=== PATIENT | male | born 1950 | race Caucasian/White ===

== ENCOUNTER 2016-10-10 11:12 | Inpatient (IN) | payer MEDICARE ==
[~2016-10-10] VITALS: Ht 182.9 cm; Wt 105.2 kg
[~2016-10-10 11:12] MED LIST: CYAN500 PO; DOCU250C2 PO; FERR-83 PO; FURO40TA4 PO; METO50TA3 PO; OXYC5TAB72 PO; SENN-133 PO; TAMS0.4C98 PO
--- NOTE | 2016-10-10 11:15 | ED.REPORT ---
HPI-General Illness Date of Service Oct 10, 2016 ED Provider: Dr. Dyer Pt is a 66 y/o male w/ a hx of primary colon cancer with mets to the liver, dilated cardiomyopathy, a-fib on Coumadin, CVA, HTN, presenting to the ED via EMS with his c/o generalized weakness onset yesterday night. His noticed yellow discharge from his chronic LLE wound last night. He did not go to his wound care appointment yesterday because he was feeling unwell. He c/o associated RUQ abdominal pain, mild nausea, decreased appetite. Pt denies fever , chills, vomiting, CP, SOB, decrease PO liquid intake. CODE STATUS: DNR and DNI, treat with antibiotics Oncologist: Dr. Saul Nursing Notes Stated Complaint: WEAKNESS Nursing Notes Reviewed: Yes Allergies: Coded Allergies: No Known Allergies (Verified Allergy, Unknown, 08/13/16) Scheduled Cyanocobalamin (Vitamin B12) 500 Mcg Tablet 1,000 MCG PO DAILY Ferrous Sulfate (Ferrous Sulfate) 325 Mg Tablet 325 MG PO DAILY Furosemide (Furosemide) 40 Mg Tablet 40 MG PO DAILY Metoprolol Tartrate (Metoprolol Tartrate) 50 Mg Tablet 50 MG PO BID Sennosides (Senna) 8.6 Mg Tablet 8.6 MG PO DAILY Tamsulosin (Flomax) 0.4 Mg Capsule 0.4 MG PO Evening Scheduled PRN Docusate Sodium (Docusate Sodium) 250 Mg Capsule 250 MG PO DAILY PRN PRN For Constipation oxyCODONE (oxyCODONE) 5 Mg Tablet 5-10 MG PO q6hrs PRN PRN For Pain General Time Seen by MD: 11:15 Chief Complaint Not feeling well Hx Obtained From: Patient, Spouse, EMS Arrived By: Ambulance Sudden in Onset?: No Onset Occurred: 9 - 12 hours ago Symptom Duration: Since onset Location: : Abdomen Quality: Cramping Severity: Current: Mild Severity: Maximum: Mild Recent Healthcare: Recent testing, Previous diagnosis, Prior workup Similar Sx Previous: Yes Past Medical History Past Medical History Notes: Patient Oncology note 01/16/15: HISTORY OF PRESENT ILLNESS: 1. Metastatic colon cancer with liver metastases, treated with FOLFOX December 21 through May 06, 2014, with a hiatus due to healing issues, and then again May 18 through June 07 due to wound breakdown. 2. Distal sigmoid adenocarcinoma with liver metastases, treated with FOLFOX on November 25, December 17, December 31, January 12, January 18, 2013, with partial response. Had to stop due to complications of surgery. 3. Complicated surgery with sigmoid colectomy, lysis of adhesions on February 24, 2013, with debridement of necrotic midline abdominal wall fascia. Left lower quadrant subcutaneous tissue wound VAC placement February and March 2013. 4. Surgical treatment of adhesions March 04, 2013, with necrosis of the descending colon and a large intra-abdominal abscess requiring laparotomy, partial colectomy, transverse colostomy and drainage of abscess, wound VAC placement, followed by prolonged retirement stay. 5. In terms of metastatic disease to the liver, this has been in the background to some extent due to his wound healing issues. MRI has been the best measurement and has shown a response to FOLFOX chemotherapy essentially every time he has received it. [facility] was consulted as to the best approach given his history of wound healing, and their recommendation was to continue treatment with FOLFOX and accept some slowing of wound healing. 6. The patient did not tolerate cetuximab. 7. He continues on FOLFOX chemotherapy. 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 Splenectomy Tonsillectomy Vasectomy Smoking History Former Smoker Social History Alcohol Use: Denies alcohol use Drug Use: Denies drug use Ambulatory Status Independent Review of Systems +decreased appetite Full Review of Systems Constitutional: Reports: Weakness - generalized, Denies: Chills, Fever Respiratory: Denies: Shortness of breath Cardiovascular: Denies: Chest pain GI: Reports: Abdominal pain, Nausea, Denies: Vomiting Complete sys rev & neg: except as marked. Physical Exam Vital Signs Vital Signs Date Time Temp Pulse Resp B/P Pulse Ox O2 Delivery O2 Flow Rate FiO2 10/10/16 11:22 35.6 74 16 86/24 96 Room Air Initial VS: Reviewed, Vital signs abnormal ENT: Mucous membranes moist, Conjunctiva normal, No scleral icterus Neck: Supple, Full range of motion Neurologic: Alert, Oriented, Nonfocal Psychiatric: Mood/affect normal, Behavior normal, Normal thought content General/Constitutional: Awake, Alert, No acute distress, Cooperative Appearance / Presentation: Positive: Icteric Head / Eyes: Atraumatic, Normocephalic, PERRL Conjunctiva / Sclera: Positive: Icteric Respiratory / Chest: Atraumatic, Breath sounds NL, Breath sounds = bilat, No respiratory distress, No rales, No rhonchi, No wheezing, No retractions, No stridor, No chest tenderness, No chest wall deformity, No crepitus Lungs clear anteriorly Cardiovascular: Heart rate NL, Cap refill not delayed Heart Rate / Rhythm: Positive: Irreg irregular rhythm Heart Sounds / Murmur: Positive: Systolic murmur present.. (II/, lower left sternal border) Abdomen: Atraumatic, Non-tender, BS normoactive Colostomy left abdomen Abdomen is firm Anasarca present Lower Extremity / Pelvis / MS: Atraumatic, Full range of motion, No compartment syndrome Massive bilateral lower extremity edema. Left leg has a compression dressing Dressing on LLE taken down. Chronic venous stasis changes. Lymphedema Erythema Lower extremity drainage is malodorous No warmth Mild erythema over sacrum per RN Interpretation & Diagnostics Lab Results Interpretation Result Diagram: 10/10/16 1140 10/10/16 1140 Test 10/10/16 11:40 10/10/16 13:18 White Blood Count 8.4th/mm3 (3.8-10.1) Red Blood Count 2.81mil/mm3 (4.40-5.80) Hemoglobin 9.4g/dL (13.8-17.2) Hematocrit 26.0% (41.0-50.0) Mean Corpuscular Volume 92.5fL (81-100) Mean Corpuscular Hemoglobin 33.5pg (27.0-35.0) Mean Corpuscular Hemoglobin Concent 36.2% (32.0-37.0) Red Cell Distribution Width 20.5% (12.3-15.4) Platelet Count 161bil/L (150-400) Neutrophils (%) (Auto) 86.1% (40-74) Lymphocytes (%) (Auto) 2.6% (14-46) Monocytes (%) (Auto) 10.3% (4-12) Eosinophils (%) (Auto) 0.4% (0-5) Basophils (%) (Auto) 0.2% (0-3) Prothrombin Time 13.9sec (8.1-12.5) Prothromb Time International Ratio 1.29ratio Sodium Level 135mEq/L (134-144) Potassium Level 5.5mEq/L (3.5-5.2) Chloride Level 103mEq/L (97-108) Carbon Dioxide Level 14mmol/L (18-29) Blood Urea Nitrogen 108mg/dL (8-27) Creatinine 2.77mg/dL (0.76-1.27) Estimat Glomerular Filtration Rate 25mL/min (>59) Glucose Level 70mg/dL (60-99) Lactic Acid Level 1.9mmol/L (0.4-2.0) Calcium Level 8.6mg/dL (8.5-10.1) Magnesium Level 2.5mg/dL (1.6-2.6) Total Bilirubin 8.4mg/dL (0.0-1.2) Aspartate Amino Transf (AST/SGOT) 66U/L (0-50) Alanine Aminotransferase (ALT/SGPT) 28U/L (0-44) Alkaline Phosphatase 326U/L (25-160) Troponin T 0.049ug/L (0.0-0.011) Total Protein 7.1g/dL (6.4-8.4) Albumin 2.6g/dL (3.4-5.0) Urine Color Yellow (YELLOW) Urine Appearance Clear (CLEAR,HAZY) Urine pH 5.0 (5.0-8.0) Urine Specific [place] 1.015 (1.003-1.035) Urine Protein Negativemg/dL (NEG,TRACE) Urine Glucose (UA) Negativemg/dL (NEGATIVE) Urine Ketones Negativemg/dL (NEGATIVE) Urine Occult Blood Negative (NEGATIVE) Urine Nitrite Negative (NEGATIVE) Urine Bilirubin Small (NEGATIVE) Urine Ictotest Positive (Negative) Urine Urobilinogen Normalmg/dL (NORMAL) Urine Leukocyte Esterase Negative (NEGATIVE) Urine RBC 0-2/hpf (0-2) Urine WBC 0-5/hpf (0-5) Urine Epithelial Cells Occasional/hpf (NONE-MOD) Urine Crystals None seen (NONE SEEN) Urine Bacteria Few/hpf (NONE-FEW) Urine Hyaline Casts None/lpf (NONE) Urine Granular Casts None seen (NONE SEEN) Urine Waxy Casts None seen (NONE SEEN) Urine Red Blood Cell Casts None seen (NONE SEEN) Urine White Blood Cell Casts None seen (NONE SEEN) Urine Mucus None seen (None Seen) Urine Trichomonas None seen (NONE SEEN) Urine Yeast None (NONE SEEN) Urinalysis Comment None Urine Culture Reflexed Not indicated Lab Results Interpretation: Anemia unchanged from baseline ECG Interpretation ECG Interpretation: A-fib rate 73 No peaked T waves No acute changes Time: 12:06 Interpreted by: ED physician Normal ECG Interpretation: No acute ischemic changes X-Ray Chest Interpretation Chest Xray Interpretation: IMPRESSION: Pulmonary edema and/or pneumonia involving the left lung base. Recommend clinical correlation. Dictated by: Robert LEONARD Interpreted: Rica Sam MD on 10/10/2016 at 12:10 Transcribed by: DENISE on 10/10/2016 at 12:11 View: Portable, 1 view Interpretation / Wet Read by: Interpret - Radiologist Re-Eval/Medical Decision Med Decision/Clinical Course 66 year old male with metastatic colon Ca, hepatic failure and renal failure. He is DNR/limited. CXR suspicious for pneumonia, chronic wound on L leg does not appear infected at present. Note hyopotension, limited IV fluids given renal failure and anasarca. Started on HCP antibiotics and admitted to hospitalist service. Source of Hx: Old records, EMS, Family Time of Eval: 13:45 Re-Evaluation/Progress Note: Pt rechecked. Informed pt of need for admission for further evaluation. Pt understands and agrees with plan for admission. All questions addressed. Consultation : Referral / Consult Name: Melia Grewal DO Consulted With: Hospitalist Call Returned at: 13:59 Manager Assisted Living: Will see patient, Agrees with eval, Agrees with plan, Accepts admit Note: Case discussed Counseled Regarding: Diagnosis, Lab results, Need for admission Discharge & Departure Primary Impression: Generalized weakness Additional Impressions: Pneumonia Pneumonia type: due to unspecified organism Laterality: left Lung location : lower lobe of lung Qualified Code: J18.9 - Pneumonia, unspecified organism Anasarca Renal failure Chronic wound of extremity Disposition: ADMITTED TO HOSPITAL Discharge Condition All VS Reviewed: Yes Condition: Stable Referrals: Israel Braun DO (PCP) Anderson Saul MD Attestation Portions of this note were transcribed by Inocencio Linton. I, Dr. Dyer personally performed the history, physical exam and medical decision-making; I reviewed and confirmed the accuracy of the information in the transcribed note. Signed by Francisca Aguiar, 10/10/16 - 1300 copies to: Israel Braun DO; Anderson Saul MD, Donald L MD Oct 10, 2016 11:15 INOCENCIO LINTON Oct 10, 2016 11:24
[2016-10-10] MEDS ORDERED: Ondansetron 2 mg/mL 2 mL Inj IV PRN (11:20)
[2016-10-10 11:22] VITALS: BP 86/24; PULSE 74; RESP 16; O2SAT 96
[2016-10-10 12:01] LABS: BASOPHILS % (AUTO) 0.2 % (0-3); EOSINOPHILS % (AUTO) 0.4 % (0-5); MONOCYTES % (AUTO) 10.3 % (4-12); Mean Corpuscular Hemoglobin 33.5 pg (27.0-35.0); Mean Corpuscular Volume 92.5 fL (81-100); NEUTROPHILS % (AUTO) 86.1 % (40-74); Platelet Count 161 bil/L (150-400)
--- NOTE | 2016-10-10 12:12 | DRSVH ---
PROCEDURE: X-RAY CHEST ONE VIEW, PORTABLE ([id number]) INDICATIONS: weakness TECHNIQUE: One view of the chest was acquired. COMPARISON: [facility], CR, XR CHEST 1VW (PORTABLE), 08/13/2016, 16:59. FINDINGS: Surgical changes and devices: Stable positioning of left subclavian chest port.. Lungs and pleura: There is venous congestion of mild pulmonary edema as well as consolidation involvi ng the left lung base. Trace pleural effusions. No pneumothorax. Mediastinum: Mediastinal contours appear normal. Heart size is enlarged. Bones and chest wall: No suspicious bony lesions. Overlying soft tissues appear unremarkable. IMPRESSION: Pulmonary edema and/or pneumonia involving the left lung base. Recommend clinical correl ation. Dictated by: Robert Emmanuel [facility] Interpreted: Rica Sam MD on 10/10/2016 at 12:10 Transcribed by: DENISE on 10/10/2016 at 12:11 Approved by: Rica Sam MD, PhD on 10/10/2016 at 16:25
[2016-10-10 12:16] LABS: INR 1.29 ratio
[2016-10-10] MEDS ORDERED: 0.9% Sodium Chloride 1,000 ML IV ONE (12:30)
[2016-10-10 12:35] LABS: Magnesium 2.5 mg/dL (1.6-2.6)
[2016-10-10 12:53] LABS: TROPONIN T 0.049 ug/L (0.0-0.011)
[2016-10-10 13:24] LABS: APPEARANCE,URINE CLEAR (CLEAR,HAZY); COLOR,URINE YELLOW (YELLOW); OCCULT BLOOD,URINE NEGATIVE (NEGATIVE); UROBILINOGEN,URINE NORMAL (NORMAL)
[2016-10-10] MEDS ORDERED: levoFLOXacin Inj 750 MG in IV Premix 1 EACH IV ONE (13:40)
[2016-10-10] MEDS ORDERED: Cefepime Inj 2 GM in IV Premix 1 EACH IV ONE (13:40)
[2016-10-10] MEDS ORDERED: Vancomycin Dose per Pharmacist XX ONE (13:40)
[2016-10-10 13:45] LABS: ICTOTEST,URINE POSITIVE (Negative)
--- NOTE | 2016-10-10 14:13 | PCM.CONPHA ---
Subjective Date of Service: Oct 10, 2016 Requesting Provider: Josep Dyer MD Reason for Pharmacy Consult: Vancomycin Dosing Objective Vital Signs Date Time Temp Pulse Resp B/P Pulse Ox O2 Delivery O2 Flow Rate FiO2 10/10/16 11:22 35.6 74 16 86/24 96 Room Air Weight (Kilograms): 120 Height (Feet): 6 Test 10/10/16 11:40 10/10/16 13:18 White Blood Count 8.4th/mm3 (3.8-10.1) Red Blood Count 2.81mil/mm3 (4.40-5.80) Hemoglobin 9.4g/dL (13.8-17.2) Hematocrit 26.0% (41.0-50.0) Mean Corpuscular Volume 92.5fL (81-100) Mean Corpuscular Hemoglobin 33.5pg (27.0-35.0) Mean Corpuscular Hemoglobin Concent 36.2% (32.0-37.0) Red Cell Distribution Width 20.5% (12.3-15.4) Platelet Count 161bil/L (150-400) Neutrophils (%) (Auto) 86.1% (40-74) Lymphocytes (%) (Auto) 2.6% (14-46) Monocytes (%) (Auto) 10.3% (4-12) Eosinophils (%) (Auto) 0.4% (0-5) Basophils (%) (Auto) 0.2% (0-3) Prothrombin Time 13.9sec (8.1-12.5) Prothromb Time International Ratio 1.29ratio Sodium Level 135mEq/L (134-144) Potassium Level 5.5mEq/L (3.5-5.2) Chloride Level 103mEq/L (97-108) Carbon Dioxide Level 14mmol/L (18-29) Blood Urea Nitrogen 108mg/dL (8-27) Creatinine 2.77mg/dL (0.76-1.27) Estimat Glomerular Filtration Rate 25mL/min (>59) Glucose Level 70mg/dL (60-99) Lactic Acid Level 1.9mmol/L (0.4-2.0) Calcium Level 8.6mg/dL (8.5-10.1) Magnesium Level 2.5mg/dL (1.6-2.6) Total Bilirubin 8.4mg/dL (0.0-1.2) Aspartate Amino Transf (AST/SGOT) 66U/L (0-50) Alanine Aminotransferase (ALT/SGPT) 28U/L (0-44) Alkaline Phosphatase 326U/L (25-160) Troponin T 0.049ug/L (0.0-0.011) Total Protein 7.1g/dL (6.4-8.4) Albumin 2.6g/dL (3.4-5.0) Urine Color Yellow (YELLOW) Urine Appearance Clear (CLEAR,HAZY) Urine pH 5.0 (5.0-8.0) Urine Specific [place] 1.015 (1.003-1.035) Urine Protein Negativemg/dL (NEG,TRACE) Urine Glucose (UA) Negativemg/dL (NEGATIVE) Urine Ketones Negativemg/dL (NEGATIVE) Urine Occult Blood Negative (NEGATIVE) Urine Nitrite Negative (NEGATIVE) Urine Bilirubin Small (NEGATIVE) Urine Ictotest Positive (Negative) Urine Urobilinogen Normalmg/dL (NORMAL) Urine Leukocyte Esterase Negative (NEGATIVE) Urine RBC 0-2/hpf (0-2) Urine WBC 0-5/hpf (0-5) Urine Epithelial Cells Occasional/hpf (NONE-MOD) Urine Crystals None seen (NONE SEEN) Urine Bacteria Few/hpf (NONE-FEW) Urine Hyaline Casts None/lpf (NONE) Urine Granular Casts None seen (NONE SEEN) Urine Waxy Casts None seen (NONE SEEN) Urine Red Blood Cell Casts None seen (NONE SEEN) Urine White Blood Cell Casts None seen (NONE SEEN) Urine Mucus None seen (None Seen) Urine Trichomonas None seen (NONE SEEN) Urine Yeast None (NONE SEEN) Urinalysis Comment None Urine Culture Reflexed Not indicated Assessment/Plan Assessment/Plan Indication: pneumonia. Goal trough: 15-20. Labs: Weight: 120 kg SCr: 2.77 (note: baseline SCr on 04/18/16 was 0.67; has been steadily increasing) . CrCl: ~35 mL/min based on adjusted body weight. Give loading dose of vancomycin 1750 mg now (~15 mg/kg). Please reorder vancomycin per pharmacy if you would like to continue vancomycin after admission. Thank you for the consultation. [facility] Ximena Aguiar Oct 10, 2016 14:13
[2016-10-10] MEDS ORDERED: Alum-Mag Hydrox-Simeth 30 mL Suspension PO PRN ×2 (14:30→14:45)
[2016-10-10] MEDS ORDERED: Vancomycin Inj 1,750 MG in 0.9% Sodium Chloride 500 ML IV ONE (14:30)
[2016-10-10] MEDS ORDERED: Ondansetron 2 mg/mL 2 mL Inj IVPUSH PRN ×2 (14:30→14:45)
[2016-10-10] MEDS ORDERED: Polyethylene Glycol (PEG) 17 Gm Powder PO PRN (14:45)
--- NOTE | 2016-10-10 15:13 | NUR ---
Admit nurse note Admission assessment completed in ER with 's help. Pt c/o increasing weakness with recent difficulty swallowing food. He cuts his food in to small pieces. No hx of falls but pt. is oriented to room and call joseph. at bedside and daughter stay at bedside. states she has been caring for him at home and has been considering hospice. Case management referral to be made by primary RN. NKA verified, med rec completed per pt family recall. POLST on file and to bring DPOA at earliest convenience. Report given to Gris who states she will follow up with case management.
[2016-10-10 15:20] VITALS: BP 82/26; PULSE 72; RESP 18
[2016-10-10 15:31] VITALS: BP 94/60; PULSE 78; RESP 18; O2SAT 94
[2016-10-10] MEDS: 0.9% Sodium Chloride 1,000 ML IV SCH (15:50)
--- NOTE | 2016-10-10 16:00 | NUR ---
Admit Pt admitted to unit, rm [id number] at 1530. Pt denied having pain-family reminded RN that pain medications were just recd in ED. Port in L chest patent and abx infusing. Admit had been done by admit RN, including med rec. VSS. Info to be discussed with . Bed in low position, upper rails up, call light in reach. Will continue to monitor. Addendum: 10/10/16 at 1840 by STEPHANIA CLAYTON RN Primary RN discussed with MD issues below: Troponin to be redrawn in the AM. No need for tele monitoring. Palliative to be involved-Abx and IV fluids only. Low blood albumin ->IV infusion ordered. Kpad ordered for discomfort between shoulder blades.
[2016-10-10 16:56] VITALS: BP 93/55; PULSE 61; RESP 18; O2SAT 93
--- NOTE | 2016-10-10 17:36 | PCM.HPMED ---
Subjective Date of Service Oct 10, 2016 Primary Provider: Admitting Physician: Melia Grewal DO Primary Care Physician: Israel Braun DO Attending Physician: Melia Grewal DO Allergies Coded Allergies: No Known Allergies (Verified Allergy, Unknown, 08/13/16) PMH Social History Hx Alcohol Use: No Hx Substance Use: No Hx Tobacco Use: Yes Smoking Status: Former Smoker Exam Vital Signs Vital Sign - Last Date Time Temp Pulse Resp B/P Pulse Ox O2 Delivery O2 Flow Rate FiO2 10/10/16 15:31 36.7 78 18 94/60 94 Room Air Lab and Diagnostics Result Diagram: 10/10/16 1140 10/10/16 1140 Assessment & Plan CC: Aching all over and weakness HPI: 66yo male patient presents with the c/o aching all over and leg cramps. The patient states that this has been going on for about 2 days and has progressively getting worse. Patient denies fever, chills, diarrhea, LLE pain with increasing weaping and oozing of a known lesion. Patient reports nausea no vomiting, decreased appetite. Patient states that he has been going to the wound care 3 times a week. Patient currently reports that he has cancer with metastasis to the liver. Patient is no longer on chemotherapy or radiation. Dr. Saul is his oncologist Home medications: Cyanocobalamin 500 g daily Docusate 250 mg daily Ferrous sulfate 325 mg daily Lasix 40 mg daily Metoprolol 50 mg daily Oxycodone 5 mg every 6 when necessary Senna 8.6 mg daily Flomax 0.4 mg daily Allergies: Drug: No known drug allergies Food: No known food allergies PMHx: Colon cancer with mets to the liver Non hodgskin lymphoma Hodgskins lymphoma HTN- currently controlled since decreased weight afib Anasarca SHx: Colon resection with Colostomy Tonsillectomy as a child FHx: Family history skin cancer Mother of heart disease at age 73 Father of heart disease at age 87 SocHx: Occupation: former truck technician Tobacco history:Former 1PPD for 20years smoker quit in 1985 Alcohol use: Former drinker 1-2 drinks per night but quit 3-4 years ago Drug use: Patient denies ROS: A 12point revew of systems was performed or attempted to be performed. Please see HPI for perninent positives. Physical Exam: GEN: Patient was awake, alert, responding appropriately to questions HEENT: PERRLA, EOMI, Neck soft supple, trachea midline, nomocephalic/atraumatic , eyes icteric CV: +S1/S2, RRR, systolic murmurs auscultated Respiratory: CTAB, no wheezes, rales, rhonchi GI: +bowel sounds x4, firm, minimally compressible, non TTP, colostomy in place EXT: Significant edema in the lower extremities bilaterally, lower extremities bilaterally wrapped dressing clean dry and intact, S1 intact bilaterally, positive dorsi and plantarflexion Skin: Positive jaundice Neuro: CN II-XII grossly intact Psych: mood and affect were appropriate Assessment and Plan 66yo male patient presents with the c/o aching all over and leg cramps with a history of colon carcinoma with metastasis to the liver. Generalized weakness may be secondary to atypical infection versus secondary symptoms of progressing colon cancer -Continue to monitor for any signs of infection -Consult wound care and appreciate recommendations -Follow up Wound culture -Follow up blood culture -Continue to monitor Anasarca -Administer albumin -Continue to monitor -Continue pain management Hyperkalemia -Patient's potassium is 5.5 -Patient has been fluid resuscitated we will reassess in the morning Acute kidney injury -Baseline creatinine 1.5 current Cr 2.77 - Hold Lasix -Consider consult to nephrology Hypertension -Currently stable patient is asked a hypotensive at this moment and being fluid resuscitated -Patient states that his hypertension has been currently controlled with weight loss. Atrial fibrillation -Patient has a history of A. fib and the patient does go in and out of A. fib -Currently rate controlled -Continue metoprolol Code Status: DNR/DNI Disposition: Patient is currently aware of his situation that he is end-stage colon cancer with metastasis to the liver. The patient states that he does not want hospice however he does want comfort measures with treatment with antibiotics and IV fluids. Patient may benefit from a palliative care consult however he has stated that his and him have made decisions in regards to his care. Palliative care may be able to give us some more insight into the specifics of his goals of care. At this time we will try to make the patient comfort and treat his wounds and look for any signs of infection that could be causing his weakness. We will contact his oncologist for further recommendations as well. VTE Mechanical Devices: Venous Foot Pump Time spent Greater than 35 minutes Melia Grewal DO Oct 10, 2016 16:40
[2016-10-10] MEDS ORDERED: HYDROmorphone 1 mg/mL Inj IVPUSH PRN (17:40)
[2016-10-10] MEDS ORDERED: HepLOK Flush 100 unit/mL 5 mL Inj IVFLUSH PRN (18:00)
[2016-10-10] MEDS ORDERED: Sodium Chloride LOK Flush 10 mL Syringe IVFLUSH PRN ×2 (18:00)
--- NOTE | 2016-10-10 18:07 | NUR ---
Wound Care Pt well known to wound center where he receives care for his edematous legs and lymphedema. He is admitted to the hospital with weakness and possible pneumonia, usually talkative he is of few words today which is worrisome. His left leg is draining serous fluid copiously through the skin and I elected to wrap him from toes to knee bilaterally with absorbent dressings and kerlix wrap followed by stephie to provide him a multilayer compression system to help control drainage. These can be changed by nursing daily.
[2016-10-10] MEDS ORDERED: Albumin 25% 25 GM in IV Premix 1 EACH IV ONE (18:30)
[2016-10-10 20:04] VITALS: BP 89/48; PULSE 61
--- NOTE | 2016-10-10 22:32 | NUR ---
Skin Blanchable redness on bottom with small skin tear currently managed by Calmoseptine and q2 turns. Wound care evaluation active.
[2016-10-11] MEDS: 0.9% Sodium Chloride 1,000 ML IV SCH ×3 (00:30→10:31)
[2016-10-11 04:17] VITALS: BP 98/58; PULSE 81; RESP 20; O2SAT 94
[2016-10-11 05:40] LABS: Mean Corpuscular Hemoglobin 33.5 pg (27.0-35.0)
[2016-10-11 06:23] LABS: TROPONIN T 0.041 ug/L (0.0-0.011)
[2016-10-11] MEDS: 0.9% Sodium Chloride 250 ML IV SCH (08:07)
--- NOTE | 2016-10-11 10:32 | NUR ---
Palliative Care Palliative Care received verbal order from Dr Casey Grewal 10/11/16 to assist with goals of care. Patient is a 66 year old man with colon cancer and mets to liver. He presented with body aches, generalized weakness and was admitted 10/10/16. The Palliative Care Team saw patient during admission 08/2016. Patient lives at home with . Gladys Jay () [phone], Palliative Care to follow. Janna Chairez
[2016-10-11] MEDS ORDERED: Nystatin 100,000 Unit/Gm 15 Gm Powder TOPICAL PRN (11:20)
--- NOTE | 2016-10-11 11:40 | NUR ---
Palliative care note D/A: Pt seen by Ashlie Hodges this morning in consult. Pt and spouse are clear in their goals to eventually move to hospice, if pt survives this admission. Pt has potentially had his info visit already. Pt and spouse also note that [facility] calls them regularly to inquire about readiness for hospice services. Have left message for Abbie at [facility] regarding above and also to ask if could place pt tentatively on [facility] schedule for early next week. P: Palliative to continue to follow. Ira BENTLEY, CCM
[2016-10-11 12:02] VITALS: BP 115/55; PULSE 80; RESP 18; O2SAT 94
--- NOTE | 2016-10-11 12:41 | PCM.PNMED ---
Subjective Date of Service Oct 11, 2016 Subjective The patient was seen and examined today at bedside. The patient states that his lower extremity edema and sustain however he has new onset right upper extremity edema. The patient states that he does feel a little better compared to yesterday and seemed to be a bit more awake and alert. Exam Vital Signs Vital Sign - Last Date Time Temp Pulse Resp B/P Pulse Ox O2 Delivery O2 Flow Rate FiO2 10/11/16 12:02 36.3 80 18 115/55 94 Room Air Intake and Output 10/10/16 10/10/16 10/11/16 Cumulative From/Thru 15:00 23:00 07:00 10/10/16 11:22 - 10/11/16 06:11 Intake Total 950 ml 950 ml Output Total 100 ml 100 ml Balance 850 ml 850 ml Intake Oral 0 ml 0 ml IV Total 950 ml 950 ml Output Urine Total 100 ml 100 ml Stool Total 0 ml 0 ml # Bowel Movements 0 0 Exam Physical Exam: GEN: Patient was awake, alert, responding appropriately to questions HEENT: PERRLA, EOMI, Neck soft supple, trachea midline, nomocephalic/atraumatic , eyes icteric CV: +S1/S2, RRR, systolic murmurs auscultated Respiratory: CTAB, no wheezes, rales, rhonchi GI: +bowel sounds x4, firm, mild TTP, PEG tube in place EXT: Bilateral lower extremity wounds currently wrapped clean dry and intact, significant edema of the lower extremities bilaterally and in the right upper extremity, the right upper extremity edema is a new onset today Neuro: CN II-XII grossly intact Psych: mood and affect were appropriate IVs and Medications Medications Reviewed: Medications were reviewed in detail Medications Current Medications Ondansetron HCl 4 mg 4 mg Q15M PRN IV; Start 10/10/16 at 11:20 Sodium Chloride 1,000 ml @ 100 mls/hr Q10H IV Last administered on 10/10/16t 15: 50; Admin Dose 100 MLS/HR; Start 10/10/16 at 14:30; Stop 10/11/16 at 11:15; Status DC Al Hydrox/Mg Hydrox/Simethicone 30 ml Q6 PRN PO; Start 10/10/16 at 14:30; Stop 10/10/16 at 14:49; Status DC Ondansetron HCl Dose range: 4 mg to 8 mg Q4H PRN IVPUSH; Start 10/10/16 at 14:30 ; Stop 10/10/16 at 14:50; Status DC Acetaminophen 975 mg Q6H PRN PO; Start 10/10/16 at 14:30 Al Hydrox/Mg Hydrox/Simethicone 30 ml Q6H PRN PO; Start 10/10/16 at 14:45 Ondansetron HCl 4 to 8 mg Q4H PRN IVPUSH; Start 10/10/16 at 14:45 Senna 17.2 mg BID PRN PO; Start 10/10/16 at 14:45; Stop 10/10/16 at 17:24; Status DC Polyethylene Glycol 17 gm DAILY PRN PO; Start 10/10/16 at 14:45 Cyanocobalamin 1,000 mcg DAILY PO Last administered on 10/11/16 08:07; Admin Dose 1,000 MCG; Start 10/11/16 at 08:30 Docusate Sodium 250 mg DAILY PRN PO; Start 10/10/16 at 16:40 Ferrous Sulfate 325 mg DAILY PO Last administered on 10/11/16 08:06; Admin Dose 325 MG; Start 10/11/16 at 08:30 Furosemide 40 mg DAILY PO; Start 10/11/16 at 08:30; Stop 10/11/16 at 08:30; Status DC Metoprolol Tartrate 50 mg BID PO; Start 10/10/16 at 20:30 Oxycodone HCl prn Q6H PRN PO Last administered on 10/10/16 19:40; Admin Dose 10 MG; Start 10/10/16 at 16:40 Senna 8.6 mg DAILY PO Last administered on 10/11/16 08:07; Admin Dose 8.6 MG; Start 10/11/16 at 08:30 Tamsulosin HCl 0.4 mg DAILY PO Last administered on 10/11/16 08:06; Admin Dose 0.4 MG; Start 10/11/16 at 08:30 Hydromorphone HCl 1 mg 1 mg Q4H PRN IVPUSH; Start 10/10/16 at 17:40; Stop at 10:36; Status DC Sodium Chloride 250 ml @ 10 mls/hr Q24H IV; Start 10/10/16 at 17:59 Hydromorphone HCl 1 mg Q2 PRN IVPUSH; Start 10/11/16 at 12:30 Nystatin 1 applic BID PRN TOPICAL; Start 10/11/16 at 11:20 Lab and Diagnostics Result Diagram: 10/11/16 0520 10/11/16 0520 Assessment & Plan 66yo male patient presents with the c/o aching all over and leg cramps with colon carcinoma with metastasis to the liver and a history of Hodgkin's and non- Hodgkin's lymphoma. Oncologist: Dr. Saul Generalized weakness may be secondary to atypical infection versus secondary symptoms of progressing colon cancer -Continue to monitor for any signs of infection -Consult wound care and appreciate recommendations -Wound culture: Positive for gram-negative rods and gram-positive cocci -Blood culture pending -Continue to monitor Anasarca -Administer albumin 25 g 1 dose -Ultrasound of the abdomen with paracentesis scheduled for today as per requested by nephrology -Continue to monitor -Continue pain management Hyperkalemia -Patient's potassium is 5.9 today - Patient's family at first was reluctant to start Kayexalate however now they would like to have Kayexalate given 1 dose 15 g -We will continue to monitor Acute kidney injury -Baseline creatinine 1.5 current Cr 2.77-->2.97 - Hold Lasix -Nephrology has been consulted Hypertension -Patient remains hypotensive we will continue to hold metoprolol Atrial fibrillation -Patient has a history of A. fib and the patient does go in and out of A. fib -Currently rate controlled -Continue to hold metoprolol as patient is hypotensive Code Status: DNR/DNI Disposition: Patient is currently aware of his situation that he is end-stage colon cancer with metastasis to the liver. The family at this point is understanding that the patient's organs are failing secondary to the progressive nature of the cancer. At this point the patient and the patient's family would still like to have treatment for the patient's current condition; however, they are realizing that hospice may be the next step for the patient. Dr. Saul from oncology has been consulted and will come by and talk with the family as this is the patient's regular oncologist. after talking with Dr. Saul he feels the patient has been maintaining quality of life however he feels that the patient has recently been declining and may be more willing to discuss hospice at this time. Palliative care has been by to see the patient and his family. At this time they would like to see what the results of the paracentesis are in the recommendations from nephrology before they make the final decision of hospice. VTE Mechanical Devices: Venous Foot Pump Time spent Greater than 35 minutes Melia Grewal DO Oct 11, 2016 12:41
[2016-10-11] MEDS: HYDROmorphone 1 mg/mL Inj IVPUSH PRN (13:27)
--- NOTE | 2016-10-11 13:35 | PCM.CONPAL ---
Date of Service Oct 11, 2016 Date of Hospital Admission: Oct 10, 2016 at 14:37 Date of Palliative Consult: Oct 11, 2016 Requesting Provider: Melia Grewal DO Reason Palliative Care Consult: Goals of Care Discussion Hospital Unit @time of consult: Medical/Pediatric Care Palliative Care Recommendation Unfortunate 66-year-old gentleman with metastatic colon cancer (and distant prior history of non-Hodgkin's lymphoma) admitted with progressive weakness with findings of acute on chronic renal failure, hypernatremia, anemia, etc. Palliative medicine consulted to assist patient and family with determination of goals of care. Summary of palliative recommendations: -Symptom management (Pain/other)- comfortable at this time. Continue current medications carried over from home, including oxycodone 5 mg PO prn. Will also order hydromorphone 1 mg IV Q2 hr as needed for pain. Additional medical management per the hospitalist team. Patient's family hopes that with conservative care here he will stabilize and improve a bit. -DPOA/Advanced Directives/POLST- DO NOT RESUSCITATE/DO NOT INTUBATE/limited interventions. His continues to say that he could have IV fluids, antibiotics, transfusions, etc. if needed. She understands that his overall condition continues to deteriorate. She had a number of questions about the potential course of progressive renal failure. Nephrology has been consulted. Patient and family certain they do NOT want dialysis. She did say that if he survives this hospitalization that the plan will be to return home with hospice support. The family has previously had information visit with hospice and have been in intermittent phone contact with hospice. BUFFING AND SUEDING MACHINE OPERATOR will contact hospice and update them on his status. -Family/emotional support- excellent support with multi-generational members of family visiting during the time of our interview. Family is committed to supporting whatever care he needs. Patient Goals: 1. Patient and family want to be told the truth about his illness, even if it is unpleasant. 2. Patient and family would like to be told prognosis when it can be predicted, to better guide treatment decisions. 3. Patient would choose quality of life over quantity of life, and defines quality as being reasonably comfortable. 4. Patient's would request that comfort take priority over cognitive/ mental confusion. Additional Medical Diagnoses with primary management by Hospitalist team include : Generalized weakness may be secondary to atypical infection versus secondary symptoms of progressing colon cancer Anasarca Hyperkalemia Acute kidney injury Hypertension Atrial fibrillation Problems: End of Life Preferences DO NOT RESUSCITATE/DO NOT INTUBATE/limited interventions for now Goals of Care Comfort is the primary goal, though patient and family are still willing to accept conservative medical treatment/intervention Disposition Probably home with hospice Resuscitation Status Resuscitation Status: Limited Interventions Limited Interventions: Medications and IV Fluid POLST Updates/Changes Previous POLST?: Yes POLST Last Review Date: Oct 11, 2016 POLST Review Outcome: No Change (assist with new POLST as needed prior to discharge (if he transitions to purely comfort/hospice care)) . Advanced Care Planning Address: Comfort care Pain: None Symptom management: Drowsiness/sleepiness Pt History History of Present Illness Per admitting H&P: 66yo male patient presents with the c/o aching all over and leg cramps. The patient states that this has been going on for about 2 days and has progressively getting worse. Patient denies fever, chills, diarrhea, LLE pain with increasing weeping and oozing of a known lesion. Patient reports nausea no vomiting, decreased appetite. Patient states that he has been going to the wound care 3 times a week. Patient currently reports that he has cancer with metastasis to the liver. Patient is no longer on chemotherapy or radiation. Patient well-known to the palliative medicine service. Consulted once again to assist patient and family in determination of goals of care and course of treatment. Prior to visiting, I reviewed his records in the EMR in detail, spoke with his hospitalist and with his bedside nurse. When I arrived in his room, patient is sleeping in bed, head of bed elevated. His is at bedside. He awakens briefly to answer questions but then goes back to sleep. He says his discomfort is currently very well-controlled and he denies any significant pain, shortness of breath, nausea or other distress. I talked at length with his and then with additional family members as they arrived. Reviewed his recent outpatient course, the changes that led to this admission, and I reviewed in detail with his his laboratory studies dating back over the last year (she had a lot of questions about his renal status and progression of renal insufficiency). We also discussed his past palliative consultation, his end-of-life care directives, and his wishes going forward. 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 Metastatic colon cancer with liver metastases, treated with FOLFOX December 21 through May 06, 2014, with a hiatus due to healing issues, and then again May 18 through June 07due to wound breakdown. 2. Distal sigmoid adenocarcinoma with liver metastases, treated with FOLFOX on November 25, December 17, December 31, January 12, January 18, 2013, with partial response. Had to stop due to complications of surgery. 3. Complicated surgery with sigmoid colectomy, lysis of adhesions on February 24, 2013, with debridement of necrotic midline abdominal wall fascia. Left lower quadrant subcutaneous tissue wound VAC placement February and March 2013. 4. Surgical treatment of adhesions March 04, 2013, with necrosis of the descending colon and a large intra-abdominal abscess requiring laparotomy, partial colectomy, transverse colostomy and drainage of abscess, wound VAC placement, followed by prolonged residential stay. 5. In terms of metastatic disease to the liver, this has been in the background to some extent due to his wound healing issues. MRI has been the best measurement and has shown a response to FOLFOX chemotherapy essentially every time he has received it. [facility] was consulted as to the best approach given his history of wound healing, and their recommendation was to continue treatment with FOLFOX and accept some slowing of wound healing. 6. The patient did not tolerate cetuximab. 7. He stopped FOLFOX chemotherapy. 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 and accompanied to the hospital today by his Family Members Issues: Comfort is the primary goal His notes that if he survives this hospitalization and is able to go home that they do want to engage hospice Social Support: Excellent support from multiple family members Living Situation: Has been living at home with his who is his primary caregiver Palliative Performance Scale PPS Patient Status: Baseline PPS Ambulation: Mainly Bed PPS Activity: Unable to do most activity PPS Self-Care: Considerable assistance required PPS Intake: Minimal to sips PPS Conscious Level: Full or confusion Performance Scale: 30% ADLs ADL Patient Status: Baseline ADL Ambulation: Mainly Bed ADL Dressing: Considerable assistance required ADL Feeding: Considerable assistance required ADL Hygene/bathing: Considerable assistance required ADL Transfers: Considerable assistance required POLST at Time of Admission Previous POLST?: Yes Cardiopulmonary Resuscitation: DNR: Do Not Attempt Resuscitation Medical Interventions: Limited Additional Interventions POLST Status: No change from last encounter Allergy Allergies Reviewed: Yes Medications Current Medications: Current Medications Ondansetron HCl 4 mg 4 mg Q15M PRN IV; Start 10/10/16 at 11:20 Sodium Chloride 1,000 ml @ 100 mls/hr Q10H IV Last administered on 10/10/16 15: 50; Admin Dose 100 MLS/HR; Start 10/10/16 at 14:30; Stop 10/11/16 at 11:15; Status DC Al Hydrox/Mg Hydrox/Simethicone 30 ml Q6 PRN PO; Start 10/10/16 at 14:30; Stop 10/10/16 at 14:49; Status DC Ondansetron HCl Dose range: 4 mg to 8 mg Q4H PRN IVPUSH; Start 10/10/16 at 14:30 ; Stop 10/10/16 at 14:50; Status DC Acetaminophen 975 mg Q6H PRN PO; Start 10/10/16 at 14:30 Al Hydrox/Mg Hydrox/Simethicone 30 ml Q6H PRN PO; Start 10/10/16 at 14:45 Ondansetron HCl 4 to 8 mg Q4H PRN IVPUSH; Start 10/10/16 at 14:45 Senna 17.2 mg BID PRN PO; Start 10/10/16 at 14:45; Stop 10/10/16 at 17:24; Status DC Polyethylene Glycol 17 gm DAILY PRN PO; Start 10/10/16 at 14:45 Cyanocobalamin 1,000 mcg DAILY PO Last administered on 10/11/16 08:07; Admin Dose 1,000 MCG; Start 10/11/16 at 08:30 Docusate Sodium 250 mg DAILY PRN PO; Start 10/10/16 at 16:40 Ferrous Sulfate 325 mg DAILY PO Last administered on 10/11/16 08:06; Admin Dose 325 MG; Start 10/11/16 at 08:30 Furosemide 40 mg DAILY PO; Start 10/11/16 at 08:30; Stop 10/11/16 at 08:30; Status DC Metoprolol Tartrate 50 mg BID PO; Start 10/10/16 at 20:30 Oxycodone HCl prn Q6H PRN PO Last administered on 10/10/16 19:40; Admin Dose 10 MG; Start 10/10/16 at 16:40 Senna 8.6 mg DAILY PO Last administered on 10/11/16 08:07; Admin Dose 8.6 MG; Start 10/11/16 at 08:30 Tamsulosin HCl 0.4 mg DAILY PO Last administered on 10/11/16 08:06; Admin Dose 0.4 MG; Start 10/11/16 at 08:30 Hydromorphone HCl 1 mg 1 mg Q4H PRN IVPUSH; Start 10/10/16 at 17:40; Stop at 10:36; Status DC Sodium Chloride 250 ml @ 10 mls/hr Q24H IV; Start 10/10/16 at 17:59 Hydromorphone HCl 1 mg Q2 PRN IVPUSH; Start 10/11/16 at 12:30 Nystatin 1 applic BID PRN TOPICAL; Start 10/11/16 at 11:20 Scheduled Cyanocobalamin (Vitamin B12) 500 Mcg Tablet 1,000 MCG PO DAILY Ferrous Sulfate (Ferrous Sulfate) 325 Mg Tablet 325 MG PO DAILY Furosemide (Furosemide) 40 Mg Tablet 40 MG PO DAILY Metoprolol Tartrate (Metoprolol Tartrate) 50 Mg Tablet 50 MG PO BID Sennosides (Senna) 8.6 Mg Tablet 8.6 MG PO DAILY Tamsulosin (Flomax) 0.4 Mg Capsule 0.4 MG PO Evening Scheduled PRN Docusate Sodium (Docusate Sodium) 250 Mg Capsule 250 MG PO DAILY PRN PRN For Constipation oxyCODONE (oxyCODONE) 5 Mg Tablet 5-10 MG PO q6hrs PRN PRN For Pain Objective Findings Exam Vital Sign - Last Date Time Temp Pulse Resp B/P Pulse Ox O2 Delivery O2 Flow Rate FiO2 10/11/16 12:02 36.3 80 18 115/55 94 Room Air Intake and Output 10/10/16 10/10/16 10/11/16 Cumulative From/Thru 15:00 23:00 07:00 10/10/16 11:22 - 10/11/16 06:11 Intake Total 950 ml 950 ml Output Total 100 ml 100 ml Balance 850 ml 850 ml Intake Oral 0 ml 0 ml IV Total 950 ml 950 ml Output Urine Total 100 ml 100 ml Stool Total 0 ml 0 ml # Bowel Movements 0 0 Objective Weak, chronically ill-appearing man lying in bed. Vital signs noted. Skin is ashen, warm and dry. Head and neck exam without other acute focal findings. Lungs clear anterolaterally, heart sounds regular. Abdomen rounded/distended. Extremities with diffuse edema. Lab/Diagnostics Lab and Imaging results reviewed in detail in EMR. Time spent Total time 70 minutes; >50% face to face with patient and family, providing counselling regarding plans and recommendations, and in care coordination with his medical teams. Of the above total time, 15 minutes counseling for advanced care planning with the patient and his family, reviewing their care wishes/plans copies to: Israel Braun DO; Anderson Saul MD, David F MD Oct 11, 2016 13:35
--- NOTE | 2016-10-11 14:07 | DRSVH ---
PROCEDURE: US ABDOMEN, LIMITED ([id number]) INDICATIONS: anasacra TECHNIQUE: Real-time focused scanning was performed of the abdomen, with image documentation. COMPARISON: None. FINDINGS: Trace perihepatic and right lower quadrant fluid is present with fluid volume not sufficien t for safe paracentesis. IMPRESSION: Small amount of ascites. Dictated by: Robert Emmanuel RRA Interpreted: Rica Sam MD on 10/11/2016 at 14:05 Transcribed by: DENISE on 10/11/2016 at 14:06 Approved by: Rica Sam MD, PhD on 10/11/2016 at 16:46
--- NOTE | 2016-10-11 16:31 | NUR ---
Social Work: Initial Assessment Data: Pt is a 66 y/o male admitted for pneumonia, renal failure, anasarca. Pt's PCP is Dr Braun, pt's insurance is Medicare with [employer] supp. Readmit score is 5. VENTURE CAPITALIST met with pt and spouse at bedside. Pt sleeping soundly, pt's answered questions. She states her and pt live in [place] in a single story home where he uses a walker, drives at baseline, has no history of HH, spent time at [facility], has no LTC or VA benefits, and not a caregiver. Pt's states they are talking about hospice verses other options right now. VENTURE CAPITALIST will continue to follow. Assessment: Pt who is independent at baseline. Plan: Pt will likely d/c home, possibly with hospice or HH. VENTURE CAPITALIST will continue to follow. SAEED Lai Addendum: 10/11/16 at 1634 by VICKY HOOPER Amended: Links added.
--- NOTE | 2016-10-11 16:38 | NUR ---
shift note Pleasant and cooperative pt, able to make needs known. Pt denied pain-IV Dilaudid given one time as preventative prior to abd US. US done at bedside=small amt of ascites. Pt was hesitant about Kayexalate but tolerated it well. Appetite decreased-pt refusing to eat. Tolerates water ok and ice chips. Pt seen by Palliative and Nephrology today. q2hr turns provided. Mepilex w/ volodymyr applied to R upper buttocks. Wraps around both LE C/D/I. Lots of family and friends visiting. Pt sleeping most of shift. Bed in low position, call light in reach.
[2016-10-11] MEDS ORDERED: Vancomycin Dose per Pharmacist XX SCH (17:25)
[2016-10-11] MEDS: cefTRIAXone Inj 1,000 MG in Dextrose 5% Minibag Plus 50 ML IV SCH (17:25)
--- NOTE | 2016-10-11 17:32 | CONS ---
[address] [address] CONSULTATION REPORT PATIENT: HERSON LOPEZ : 1950 MR#: [id number] ADMIT: 10/10/2016 JOB ID: [id number] DATE OF SERVICE: 10/11/2016 RENAL CONSULTATION: HISTORY OF PRESENT ILLNESS: The patient is a very unfortunate 66-year-old white male who has a very extensive history of three malignancies over the last several decades. He most recently has had a progressive deterioration in his renal function and was admitted for acute kidney injury. As noted above he has a history of Hodgkin lymphoma several decades ago for which he underwent chemotherapy in the , in the he developed non-Hodgkin's lymphoma which was treated, and in approximately 2010 was found to have adenocarcinoma of the colon. He underwent an extensive resection but unfortunately developed a dehiscence of this and healed by secondary intention. He has undergone several rounds of chemotherapy which have had a minimal effect at best. In April 2016 his creatinine was 0.67. In mid June of 2016 it had risen to 0.9, on July 11 had risen to 1.0, on August 13, 2016 it was 1.4, and at the beginning of September of this year it had risen to 1.93. He has had a slow progression and at time of admission his creatinine was 2.77. He had been followed by Dr. Saul and stopped chemotherapy a number of months ago. He also has had issues with leg ulcerations due to chronic tissue edema for which is multifactorial. [facility] and they have utilized Anupam wraps in an attempt to control some of his dependent volume. In the last several months he has had a progressive increase in pitting edema in both lower extremities and in his right arm. This has progressed in nature into jess anasarca. He has had a number of scars and adhesions in his abdomen, so there are little places in there for fluid to accumulate. He has also been lightheaded, decreased oral intake, and decreased ostomy output. He has also had minimal output from his urine. In discussing this with the patient's , he denies any recent cough or wheezing but has had some increasing lethargy and somnolence. He has not had any nausea or vomiting, but has had jess anorexia. There is no history of any chest pain, headache, wheezing, or skin rash, but does have extensive edema as detailed above. PAST MEDICAL HISTORY: Significant for adenocarcinoma of the colon with diffuse metastasis to the liver and failed chemotherapy. He is also quite cachectic. As noted above he has also a remote history of Hodgkin's and non-Hodgkin's lymphoma, he has had a stroke when he was in his mid to late 20s, hypertension with hypertensive heart disease and cardiomyopathy. There is a history of atrial fibrillation in the past. He has severe anemia requiring repeated transfusions and a several hundred pound weight loss over the last several years due to his malignancy. PAST SURGICAL HISTORY: Remarkable for a tonsillectomy as a child, colon resection with colostomy, and subsequent wound dehiscence requiring healing by secondary intention. He is not allergic to any food or any medication. 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 He has a remote history of smoking and quit in 1985. He does state that he drinks occasionally, but has not had any alcohol in some time. FAMILY HISTORY: Noncontributory. REVIEW OF SYSTEMS: As detailed above. Otherwise is noncontributory. MEDICATIONS: At time of my evaluation include Dilaudid, Nystatin, vitamin B 12, ferrous sulfate, tamsulosin, metoprolol, and saline. PHYSICAL EXAMINATION: Revealed a chronically ill, cachectic, cadaveric appearing 66-year-old white male who was able to interact but was quite somnolent at the time of my evaluation. His temperature is 36.3, pulse rate was 70 with blood pressure is 115/55, however he has had marked hypotension prior to this. HEENT: Remarkable for bitemporal wasting, sallow complexion, and what appears to be mild scleral icterus. Neck is supple, without adenopathy, thyromegaly, or jugular venous distention. Lungs were clear and the bases were somewhat diminished owing to the patient's poor inspiratory effort. Heart was irregularly regular. Abdomen shows a colostomy in place and extensive scarring throughout the right lower abdomen from previous surgical scars. The liver was enlarged and was pulsatile in nature. He did not have any hepatojugular reflux. The skin over the abdomen pitted with palpation. There was no tenderness or rebound noted. Extremities showed moderate to large pitting type edema in 3/4 extremities with the left arm being spared. Both legs had Anupam wraps on them and this was not explored. Neurologic: He was a was able to answer only simple questions and he had evidence of asterixis. LABORATORY EXAMINATION: This morning his white count is 11.7, hemoglobin is 8.1, hematocrit 22.5, red cell indices were normal. Platelet count was slightly low at 148 and RDW was elevated. This morning his sodium is 140, potassium 5.9, chloride of 108, CO2 of 14, BUN and creatinine were 111 and 2.97 respectively. His bili was 7.4, AST was 58 and ALT was normal. Alkaline phosphatase is 266. Calcium was low at 8.3. Urinalysis was unremarkable. IMPRESSION: 1. Acute kidney injury which appears to be multifactorial secondary to hypotension, intravascular volume depletion, cardiomyopathy, and possible acute blood loss with prerenal azotemia. 2. Metastatic adenocarcinoma of the colon which appears to be end stage. 3. Mixed anion gap and non-anion gap metabolic acidosis. 4. Generalized cachexia. 5. Anasarca. RECOMMENDATION: An ultrasound had been done of the abdomen which did not show any specific peritoneal fluid. I feel that our options are extremely limited with the patient. He has two conflicting issues; intravascular volume depletion plus extensive volume overload in the tissues with anasarca. I feel a part of this is probably due to increased venous pressure from tumor burden in the abdomen which is causing a backup of blood. I would recommend some cautious hydration plus a loop diuretic. However, I would do not feel that we will be able to gain much in this gentleman's case. I have discussed this with the family and as to our limited options and they seem to agree. I do not feel, for a number of reasons, that he would be a candidate for either acute or chronic dialysis. Once again, I would like to thank you for allowing me to participate in the care of this rather unfortunate patient. I will be following him closely with you.
--- NOTE | 2016-10-11 19:19 | NUR ---
Wound Pt seen with RN this am small stage 2 PU noted at right buttock 1 cm x 1 cm 0.1 cm (POA). Apply calmoseptine and sacral foam dressing change q 48 hrs, frequent repositioning. Leg wraps without breakthrough drainage can be changed PRN for soiling.
--- NOTE | 2016-10-11 20:02 | NUR ---
ABX Per family waiting on abx until AM lab. If WBC keep improving they do not want abx at this time.
[2016-10-11 20:43] VITALS: BP 94/51; PULSE 94; RESP 20; O2SAT 93
--- NOTE | 2016-10-12 00:26 | PROG NOTE ---
[address] [address] PROGRESS NOTE PATIENT: HERSON LOPEZ : 1950 MR#: [id number] ADMIT: 10/10/2016 JOB ID: [id number] DATE: 10/11/2016 HOSPITAL ROUNDS: Dr. Grewal notified me that this patient had been admitted on October 10, 2016 for aching all over, increased weakness and inanition, inability to get up out of bed, and loss of appetite with almost no p.o. intake. He was admitted with anasarca, 4+ peripheral edema which has been longstanding, jaundice, anorexia, extreme weakness, and progressive renal failure with a creatinine of 2.77. This is a patient who has had a long history of metastatic colon cancer involving the liver, who, as Dr. Crow and Dr. Grewal point out, has been treated with chemotherapy in the past with limited benefit and the patient himself decided that his quality of life would be better off without any further chemotherapy. He has been seen in [facility] mainly for supportive care. We did discuss hospice on numerous occasions, but he feels that he has benefit in terms of quality of life from both IV fluids periodically and transfusion. He also benefits from other management interventions such as diuretics for his anasarca. Nonetheless, I have indicated to him and he understands that there are limited interventions available to make his life better. HISTORY OF PRESENT ILLNESS: 1. Metastatic colon cancer involving the liver, previously treated with multiple courses of Folfox chemotherapy with, at best, partial response. The patient elected to discontinue all chemotherapy and Avastin in 2015. 2. Prior history of sigmoid colectomy with lysis of adhesions for cancer. This was in February and March of 2013. He had extensive complications. He had necrosis of the descending colon, wound healing by second intention, and was followed by a prolonged intermediate stay. 3. Liver metastases known for more than three years, but now chronically jaundiced with a bilirubin of 5-7 range with increasing debilitation. 4. Chronic stasis changes in lower extremities with 4+ peripheral edema, being followed by [facility] and requiring wrapping, nonetheless with extensive oozing of serous fluid from particularly of the left lower extremity. 5. Remote history of both Hodgkin and non-Hodgkin's lymphoma. 6. History of atrial fibrillation and CHF. 7. The history of Hodgkin's disease was 1979, treated with MOPP/ABVD, and the history of non-Hodgkin's lymphoma was in 1998 treated with systemic chemotherapy. 8. The patient is also asplenic. Subjectively, he is lying in bed. He is smiling and is able to hold a conversation, but appears extremely weak. I shook hands with him several times and he did indicate that he understood his condition. He is accompanied today by his , his son, his son-in-law, and daughter, and two friends that are adopted children, unofficially adopted. REVIEW OF SYSTEMS: GENERAL: He complains of no pain at this point in time. He has no interest in eating. He is extremely weak and has had no recent fevers or chills. HEAD AND NECK: No headaches. No visual changes, but extremely dry mouth without pain. RESPIRATORY: No dyspnea or cough. CARDIAC: Patient has chronic atrial fibrillation. He is generally not aware of this and has no chest pain or palpitations. ABDOMEN: Patient notes increased abdominal girth, discomfort, and constipation. EXTREMITIES: The patient has 4+ edema. This has been something he has been grappling with for many years. The remainder of the 14 system review is negative. PHYSICAL EXAMINATION: VITAL SIGNS: His vital signs show a temp of 36.3, pulse 80, respiratory rate 18, blood pressure 115/55, pulse ox 94% on room air. GENERAL: He appears extremely frail. HEAD AND NECK: He has icterus. Pupils equal, round, and reactive. Oral and oropharyngeal mucosa are extremely dry with somewhat cobblestoned tongue. LYMPH NODES: Negative in the neck. LUNG CARVAJAL: Clear, auscultated anteriorly. CARDIAC: Rhythm is irregularly irregular, consistent with controlled atrial fibrillation less than 100. ABDOMEN: There is ascites, a panniculus, colostomy in the left lower quadrant, and an area of secondary intention healing in the middle of the abdomen which was not examined today. EXTREMITIES: Show 4+ edema. SCDs and wrappings in place. IMAGING: Abdominal ultrasound shows some trace perihepatic and right lower quadrant fluid, but not sufficient for tapping, and a small amount of ascites. LABORATORY VALUES: The white count is 11.7, hemoglobin 8.1, hematocrit 22.5, and platelets 148. The BUN and creatinine are 111 and 2.97. On October 07, 2016, it was 108 and 2.68, and on August 16, 2016, the creatinine was 1.34 and the BUN was 55. The bilirubin total is 7.4, down from 8.4 on October 10, 2016. AST 50, ALT 25, alkaline phosphatase 266. Most recent CEA was on September 24, 2016, at 328.2, much higher than previous values of 128.1 on March 25, 2016, and 69.4 on February 13, 2016. ASSESSMENT AND RECOMMENDATIONS: 1. This patient is going into chronic renal failure with perhaps multifactorial based on hepatorenal syndrome and volume depletion intravascularly although he has volume excess extravascularly and Dr. Crow is managing this aspect of his care. 2. Metastatic colon cancer. The patient has long ago decided to forego any further chemotherapeutic interventions and he is on supportive care only which includes transfusions as needed and IV fluids as needed as well as antibiotics and other treatments. 3. Whether he needs a transfusion is up to clinical judgment. He does not seem to be in any distress now and my take on this would be that he would not need a transfusion at this point. 4. Regarding the overall prognosis, he has been offered hospice participation on numerous occasions, but has declined this because he thinks that IV fluids and transfusion may make a difference in terms of his quality of life. Should he change his mind on this, I think that hospice would be a reasonable decision, particularly given the fact that he is receiving no specific anticancer therapy and would not agree to that; his condition is too frail to allow for chemotherapy administration at any level of safety. We will continue to discuss long-term management goals and how we can best improve his quality of life.
[2016-10-12 05:27] LABS: Mean Corpuscular Hemoglobin 33.2 pg (27.0-35.0); Mean Corpuscular Volume 93.4 fL (81-100)
[2016-10-12 05:28] VITALS: BP 101/54; PULSE 95; RESP 18; O2SAT 94
[2016-10-12] MEDS: 0.9% Sodium Chloride 250 ML IV SCH ×2 (07:56→17:18)
--- NOTE | 2016-10-12 11:11 | NUR ---
Medication refusal/held Patient was lethargic this morning. Patient had difficulty taking medications. Patient took 1 hour take medications. Patient did not feel like he had enough strength to take the last of his morning medications. Medications held was 2 tabs of Vitamin B12. Patient morning metoprolol was held due to low BP.
--- NOTE | 2016-10-12 11:49 | NUR ---
NUTRITION ASSESSMENT: ASSESS:66 YO male admitted with increased weakness and inanition, inability to get up out of bed, and loss of appetite with almost no p.o. intake since what appears to be 09/24/16, per admit history. His admitting diagnoses include anasarca, 4+ peripheral edema which has been longstanding, jaundice, anorexia, extreme weakness, and progressive renal failure with a creatinine of 2.77. This is a patient who has had a long history of metastatic colon cancer involving the liver, has been treated with chemotherapy in the past with limited benefit, and the patient himself decided that his quality of life would be better off without any further chemotherapy. Palliative Care has spoken with the patient and family. His stated that if the patient survives this hospitalization, the plan will be to return home with hospice support. The family has previously had information visit with hospice and have been in intermittent phone contact with hospice. Code status DNR / DNI. 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 DIET:General. Pt. has refused all meals since admit x 2 D. LABS: Reviewed. K+ 6.0, BUN 14, Cr 3.42, Total Bili 7.2, AST 91, Alk Phos 251, Alb 2.4. MEDICATIONS: Reviewed. Vitamin B12, Lopressor. NUTRITION FOCUSED PHYSICAL ASSESSMENT: GI symptoms / stool: No bowel movement reported.Zackery: 12 Skin Integrity: Pt well known to wound center where he receives care for his edematous legs and lymphedema. Yesterday Strategic Account Manager noted small stage 2 PU noted at right buttock 1 cm x 1 cm 0.1 cm (POA). ANTHROPOMETRICS: Current Wt: 105.2 kgBMI: 31.0 kg/m2.Admit weight: There are two admit weights noted, 105.2 kg, 120 kg. IBW: 80.9 kg (130% IBW) depending on which admit weight is correct. ESTIMATED NEEDS (CANCER CACHEXIA, RENAL FAILURE, CLASS I OBESITY): Calories: 2022 - 2426 kcal (25 - 30 kcal / kg IBW) Protein: 121 - 146 g protein (1.5 - 1.8 g / kg IBW) Fluids: Approx. 2024 (25 ml / kg IBW) NUTRITION DIAGNOSIS: 1)Cancer cachexia related to advanced metastatic colon cancer, progressive renal failure, as evidenced by reported complete anorexia x approx. 18 days. 2)Altered nutrition-related labs related to progressive renal failure, as evidenced by significantly elevated BUN, Creatinine. INTERVENTION: 1) Will add supplements to trays and snacks between meals to encourage PO intake. 2)It does not appear that this patient is a candidate for nutrition support. MONITOR/EVALUATE: Diet / supplement tolerance, PO intake, labs, GI/nutrition status. Follow up per high nutrition risk guidelines.
--- NOTE | 2016-10-12 12:01 | PCM.PNMED ---
Subjective Date of Service Oct 12, 2016 Subjective Patient's overall condition continues to deteriorate. He is a bit more alert this morning his BUN and creatinine continued to worsen. His he has had minimal urine output and very little oral intake. He does not appear to be in any respiratory distress syndrome and denies any nausea or vomiting. His morning labs were sodium 138, potassium 6.0, chloride of 107, S bicarbonate 14, BUN and creatinine were 123 and 3.42 respectively. Exam Vital Signs Vital Sign - Last Date Time Temp Pulse Resp B/P Pulse Ox O2 Delivery O2 Flow Rate FiO2 10/12/16 05:28 35.9 95 18 101/54 94 Room Air Intake and Output 10/11/16 10/11/16 10/12/16 Cumulative From/Thru 15:00 23:00 07:00 10/10/16 11:22 - 10/12/16 06:42 Intake Total 0 ml 420 ml 1370 ml Output Total 90 ml 100 ml 290 ml Balance -90 ml 320 ml 1080 ml Intake Oral 0 ml 300 ml 300 ml IV Total 120 ml 1070 ml Output Urine Total 90 ml 100 ml 290 ml Stool Total 0 ml # Bowel Movements 0 0 Exam The patient is a bit more alert and interactive today. He still has a emaciated , cadaveric appearance. HEENT examination remains remarkable for some tendinitis and bitemporal wasting. Mucous membranes remain dry neck is supple without adenopathy thyromegaly or jugular venous distention. Lungs few scattered rhonchi however his inspiratory effort is quite poor. Heart is irregularly irregular. Abdomen remains mildly distended without tenderness. Extremities continue to show moderate to severe anasarca and both lower extremities and his right arm. Lab and Diagnostics Result Diagram: 10/12/16 0500 10/12/16 0500 Assessment & Plan Impression #1 acute kidney injury with prerenal azotemia #2 anasarca #3 hypotension #4 cachexia #5 hyperkalemia secondary to #1 At this point I feel that we have little else to offer this unfortunate gentleman. I feel that comfort should remain daily and I would do not hold off on any further blood draws. VTE Mechanical Devices: Venous Foot Pump Resuscitation Status: Limited Interventions Limited Interventions: Medications and IV Fluid Oswaldo Crow DO Oct 12, 2016 12:01
[2016-10-12 13:47] VITALS: BP 93/57; PULSE 89; RESP 16; O2SAT 95
--- NOTE | 2016-10-12 14:58 | NUR ---
Hospice Hospice called nurse today. Hospice said they could open with patient on Friday. Nurse informed case management and MD. Hospice will call back on Friday to make sure this is what patient desires.
--- NOTE | 2016-10-12 15:35 | NUR ---
Social Work: Continued d/c planning Data: Pt is on day 2 of hospitalization. EMR reviewed, spoke with MOBILE LAB TECHNICIAN stating that pt's is leaning towards hospice and plans to speak privately with pt regarding his wishes this afternoon. MOBILE LAB TECHNICIAN called [facility] inquiring about hospice information visit on Friday and she states that will be no problem and to call in the morning once we hear from pt and pt's spouse regarding their wishes. MOBILE LAB TECHNICIAN will continue to follow. Assessment: Pt with caregiving at baseline. Plan: Pt will likely d/c home via POV with family, possibly with hospice or HH. MOBILE LAB TECHNICIAN to set up information visit with Hospice if requested by family tomorrow. MOBILE LAB TECHNICIAN will continue to follow. SAEED Lai
--- NOTE | 2016-10-12 16:08 | PCM.PNMED ---
Subjective Date of Service Oct 12, 2016 Subjective Patient was seen and examined at bedside. Patient states that he is feeling a little better but is still extremely lethargic. Patient denies any chest pain, shortness of breath, lower extreme pain, nausea, vomiting, diarrhea. Patient does have a decreased appetite. Exam Vital Signs Vital Sign - Last Date Time Temp Pulse Resp B/P Pulse Ox O2 Delivery O2 Flow Rate FiO2 10/12/16 13:47 36.0 89 16 93/57 95 Room Air Intake and Output 10/11/16 10/11/16 10/12/16 Cumulative From/Thru 15:00 23:00 07:00 10/10/16 11:22 - 10/12/16 06:42 Intake Total 0 ml 420 ml 1370 ml Output Total 90 ml 100 ml 290 ml Balance -90 ml 320 ml 1080 ml Intake Oral 0 ml 300 ml 300 ml IV Total 120 ml 1070 ml Output Urine Total 90 ml 100 ml 290 ml Stool Total 0 ml # Bowel Movements 0 0 Exam GEN: Patient was awake, lethargic, responding appropriately to questions HEENT: PERRLA, EOMI, Neck soft supple, trachea midline, nomocephalic/atraumatic , eyes icteric CV: +S1/S2, RRR, systolic murmurs auscultated Respiratory: CTAB, no wheezes, rales, rhonchi GI: +bowel sounds x4, firm, mild TTP, PEG tube in place EXT: Bilateral lower extremity wounds currently wrapped clean dry and intact, significant +4 edema of the lower extremities bilaterally and in the right upper extremity Neuro: CN II-XII grossly intact Psych: mood and affect were appropriate IVs and Medications Medications Reviewed: Medications were reviewed in detail Medications Current Medications Cyanocobalamin 1,000 mcg DAILY PO Last administered on 10/11/16 08:07; Admin Dose 1,000 MCG; Start 10/11/16 at 08:30 Docusate Sodium 250 mg DAILY PRN PO; Start 10/10/16 at 16:40 Ferrous Sulfate 325 mg DAILY PO Last administered on 10/12/16 07:55; Admin Dose 325 MG; Start 10/11/16 at 08:30 Furosemide 40 mg DAILY PO; Start 10/11/16 at 08:30; Stop 10/11/16 at 08:30; Status DC Metoprolol Tartrate 50 mg BID PO; Start 10/10/16 at 20:30 Oxycodone HCl prn Q6H PRN PO Last administered on 10/12/16 00:00; Admin Dose 10 MG; Start 10/10/16 at 16:40 Senna 8.6 mg DAILY PO Last administered on 10/12/16 07:55; Admin Dose 8.6 MG; Start 10/11/16 at 08:30 Tamsulosin HCl 0.4 mg DAILY PO Last administered on 10/12/16 07:55; Admin Dose 0.4 MG; Start 10/11/16 at 08:30 Hydromorphone HCl 1 mg 1 mg Q4H PRN IVPUSH; Start 10/10/16 at 17:40; Stop at 10:36; Status DC Sodium Chloride 250 ml @ 10 mls/hr Q24H IV Last administered on 10/12/16 07:56 ; Admin Dose 10 MLS/HR; Start 10/10/16 at 17:59 Hydromorphone HCl 1 mg Q2 PRN IVPUSH Last administered on 10/11/16 13:27; Admin Dose 1 MG; Start 10/11/16 at 12:30 Nystatin 1 applic BID PRN TOPICAL Last administered on 10/11/16 17:18; Admin Dose 1 APPLIC; Start 10/11/16 at 11:20 Pharmacy Consult 1 ea 1 ea DAILY XX; Start 10/11/16 at 17:25; Status UNV Ceftriaxone Sodium/Dextrose/ Water 50 ml @ 100 mls/hr Q24H IV; Start 10/11/16 at 17:25 Lab and Diagnostics Result Diagram: 10/12/16 0500 10/12/16 0500 Assessment & Plan 66yo male patient presents with the c/o aching all over and leg cramps with colon carcinoma with metastasis to the liver and a history of Hodgkin's and non- Hodgkin's lymphoma. Oncologist: Dr. Saul Generalized weakness may be secondary to atypical infection versus secondary symptoms of progressing colon cancer -Continue to monitor for any signs of infection -Consult wound care and appreciate recommendations -Wound culture: Positive for gram-negative rods and gram-positive cocci Enterobacter Colacae sensitive to Cipro -Blood culture negative 2 days -Start ciprofloxacin 500 mg twice a day -Continue to monitor Anasarca -Administer albumin 25 g 1 dose -Ultrasound of the abdomen with paracentesis scheduled for today as per requested by nephrology -Continue to monitor -Continue pain management Hyperkalemia -Patient's potassium is 5.5-->5.9-->6.0 today - Patient's family at first was reluctant to start Kayexalate however now they would like to have Kayexalate given 1 dose 15 g we will continue to treat patient with Kayexalate. -We will continue to monitor Acute kidney injury -Baseline creatinine 1.5 current Cr 2.77-->2.97-->3.42 today - Hold Lasix -Nephrology has been consulted Hypertension -Patient remains hypotensive we will continue to hold metoprolol Atrial fibrillation -Patient has a history of A. fib and the patient does go in and out of A. fib -Currently rate controlled -Continue to hold metoprolol as patient is hypotensive Code Status: DNR/DNI Disposition: patient's labs seem to be worsening. This does seem to be end-of -life for this particular patient. We will continue to treat the patient's hyperkalemia as well as the bacterial infection. At this point the patient and his family seem to be coming to terms with the fact that this is end-of-life. The patient seems more willing to discuss hospice. The family will continue to discuss hospice option. Hospice has been contacted and are willing to pencil him in for Friday. The family will let us know. The patient's oncologist Dr. Saul has been in to talk with the family and also feels that hospice may be appropriate next step for this particular patient. We will continue to treat patient until a final decision is made. VTE Mechanical Devices: Venous Foot Pump Resuscitation Status: Limited Interventions Limited Interventions: Medications and IV Fluid Time spent Greater than 35 minutes Melia Grewal DO Oct 12, 2016 15:54
[2016-10-12] MEDS: HYDROmorphone 1 mg/mL Inj IVPUSH PRN (16:46)
[2016-10-12] MEDS: cefTRIAXone Inj 1,000 MG in Dextrose 5% Minibag Plus 50 ML IV SCH (17:26)
--- NOTE | 2016-10-12 18:31 | NUR ---
Daughter OK to receive information Patient and give their daughter Varsha Gibson permission to receive any medical information about patient. Nurse will pass this information along in shift report.
[2016-10-12 21:08] VITALS: BP 109/64; PULSE 93; RESP 14; O2SAT 94
[2016-10-12] MEDS: Ciprofloxacin Inj 400 MG in IV Premix 1 EACH IV SCH (21:54)
--- NOTE | 2016-10-12 23:02 | NUR ---
Pt refused PO med Pt too somnolent to swallow PO meds at 2030. Multiple attempts to give Kayexalate were unsuccessful. Pt tolerating ice chips well. Pt did not tolerate meals 10/12/16 and 10/11/16.
[2016-10-13 05:18] VITALS: BP 98/53; PULSE 105; RESP 16; O2SAT 94
[2016-10-13 06:25] LABS: Mean Corpuscular Hemoglobin 32.9 pg (27.0-35.0); Mean Corpuscular Volume 93.3 fL (81-100)
--- NOTE | 2016-10-13 09:20 | NUR ---
OSWALDO signed SAEED Lai
[2016-10-13] MEDS: 0.9% Sodium Chloride 250 ML IV SCH (11:04)
--- NOTE | 2016-10-13 11:07 | NUR ---
Social Work: Continued d/c planning Data: Pt is on day 3 of hospitalization. EMR reviewed. Pt discussed in rounds. SUPERVISOR QUILTING and MD met with pt and family at bedside. Family and pt have decided to move forward with hospice. SUPERVISOR QUILTING asked if they would like a hospice information visit today and they said yes. SUPERVISOR QUILTING called [facility] and they state the info visit will be at noon today. SUPERVISOR QUILTING notified RN who will notify family. SUPERVISOR QUILTING will continue to follow. Assessment: Pt with caregiving at baseline. Plan: Pt will likely d/c home with hospice. Hospice info visit set up for noon today. SUPERVISOR QUILTING will continue to follow. SAEED Lai
--- NOTE | 2016-10-13 11:12 | NUR ---
Refused medication Patient refused all PO medications in the form of pills this morning. Patient agreed to take 60 mg Kayexalate, but was only able to tolerate taking 30mL of medication. Nurse assisted patient with administration of medication through a syringe with 1mL at a time before patient taking a 2-3 minute rest in between. Patient was lethargic and couldn't complete the whole dose of medication. MD was made aware.
[2016-10-13 13:50] VITALS: BP 109/65; PULSE 107; RESP 18; O2SAT 95
--- NOTE | 2016-10-13 14:13 | NUR ---
Hospice visit Patient and family was informed of Hospice coming around noon for informational visit. daycare worker came to talk with patient and family at noon. After informational visit daycare worker informed RN that patient and family have signed the consent for Hospice. Hospice would need patient to be discharged by 1100 tomorrow Friday to open with patient at home. Hospice received case manger phone number to inform caser up.
--- NOTE | 2016-10-13 15:54 | PCM.PNMED ---
Subjective Date of Service Oct 13, 2016 Subjective denies any new issues/complaints Exam Vital Signs Vital Sign - Last Date Time Temp Pulse Resp B/P Pulse Ox O2 Delivery O2 Flow Rate FiO2 10/13/16 13:50 36.6 107 18 109/65 95 Room Air Intake and Output 10/12/16 10/12/16 10/13/16 Cumulative From/Thru 15:00 23:00 07:00 10/10/16 11:22 - 10/13/16 06:24 Intake Total 295 ml 425 ml 2090 ml Output Total 190 ml 100 ml 580 ml Balance 105 ml 325 ml 1510 ml Intake Oral 115 ml 100 ml 515 ml IV Total 180 ml 325 ml 1575 ml Output Urine Total 190 ml 100 ml 580 ml Stool Total 0 ml # Bowel Movements 1 0 1 General: Alert, Cooperative, No Acute Distress Eyes: Scleral Anicteric Mouth: Mucous Membr Moist/Johnson Neck: Supple Chest & Lungs: Chest Wall Normal, Clear to auscultation & percussion Cardiovascular: Regular Rate/Rhythm Abdomen: Normoactive bowel tones, Soft Extremities: Other (no cyanosis/clubbing) Neurological: Grossly Neurologically Intact, Normal Speech IVs and Medications Medications Reviewed: Medications were reviewed in detail Lab and Diagnostics Result Diagram: 10/13/16 0600 10/13/16 0600 Assessment & Plan 66yo male patient presents with the c/o aching all over and leg cramps with colon carcinoma with metastasis to the liver and a history of Hodgkin's and non- Hodgkin's lymphoma. # Generalized weakness may be secondary to atypical infection versus secondary symptoms of progressing colon cancer - Wound culture: Positive for gram-negative rods and gram-positive cocci Enterobacter Colacae sensitive to Cipro - c/w Ciprofloxacin which will likely stop upon discharge home - c/w wound care # Anasarca - Continue to monitor - Continue pain management # Acute Hyperkalemia. poa. ongoing - c/w supportive care # Acute kidney injury. poa. ongoing and worsening - appreciate nephrology consult. will f/u w/ recs - plan for hospice at this time # Atrial fibrillation. chronic. stable - Patient has a history of A. fib and the patient does go in and out of A. fib - Currently rate controlled - Continue to hold metoprolol as patient is hypotensive # Goals of care: - Had long discussion with patient, his and daughter. They all confirm wishes to go home with hospice and to initiate comfort care upon discharge - appreciate palliative care consult. will f/u w/ recs Dispo: likely home with hospice in am VTE Mechanical Devices: Venous Foot Pump Resuscitation Status: Limited Interventions Limited Interventions: Medications and IV Fluid William Silva Oct 13, 2016 15:54
[2016-10-13] MEDS: cefTRIAXone Inj 1,000 MG in Dextrose 5% Minibag Plus 50 ML IV SCH (16:58)
[2016-10-13] MEDS: HYDROmorphone 1 mg/mL Inj IVPUSH PRN (17:29)
--- NOTE | 2016-10-13 18:44 | NUR ---
Diarrhea Patient has reported diarrhea X3 today. Nurse minda SIMMS notifying patient has been having diarrhea. Awaiting response. Addendum: 10/13/16 at 1845 by JAZ MCMANUS RN Disregard note, wrong patient
[2016-10-13] MEDS: Ciprofloxacin Inj 400 MG in IV Premix 1 EACH IV SCH (20:31)
[2016-10-13 22:10] VITALS: BP 95/60; PULSE 99; RESP 10; O2SAT 93
--- NOTE | 2016-10-13 22:51 | NUR ---
Refusal of PO meds Informed patient of HS meds - Metoprolol, Kayexcelate, and IV antibiotic. Patient took right hand and placed it by his throat, and shook his head "no". Clarified with patient by asking, "You don't want to swallow your medication tonight?" Patient nodded his head and again patted his throat/chest area. Agreeable to IV antibiotic. Patient tried to speak, but was only able to get a strained, inaudible word out. Patient nodded head "yes" to being comfortable and "no" to having pain. Frequent monitoring in place.
[2016-10-14 02:00] VITALS: BP 102/54; PULSE 102; RESP 10; O2SAT 92
[2016-10-14 06:59] VITALS: BP 101/57; PULSE 108; RESP 10; O2SAT 94
--- NOTE | 2016-10-14 07:05 | NUR ---
Refusal of Care Attempted to get daily weight on patient at 0700. As we were gently taking pillows out from under legs, patient said "No. No." and used his hand to make a stop motion. Padding around groin was soaked with urine. Attempted to put brief on patient and replace linens. Patient said "No. Leave it." Explained to patient that the bedding is wet, and he again said, "No." Replaced top covers. Patient declined pain medication when asked.
--- NOTE | 2016-10-14 08:53 | NUR ---
Palliative care note D/A: Note that pt was seen by [facility] on Friday10/13/16 for info visit. Phone call to Abbie at [facility] to find out results. She notes that pt signed on to [facility] and plan is for pt to dc today and [facility] open later today for services. Dr. Dailey is made aware of above plan. P: Palliative care to follow as needed. Ira BENTLEY, CCM
--- NOTE | 2016-10-14 09:06 | NUR ---
Social Work-readiness for discharge: Data:EMR Reviewed. Pt is on day 4 of hospitalization for pneumonia per H&P. Pt may be ready to discharge later today. LEE spoke with Abbie at Hospice who states they are able to open with pt today between 2-3 this afternoon. Abbie confirms that DME will be delivered this morning prior to noon. LEE placed a call to pt's Gldays to discuss. Gladys states she has arranged transport through friends to get pt home today. Gladys states she has notified them to be at the hospital around 1300. LEE updated Gladys that DME will be delivered this morning and Hospice will open at home around 1400. Gladys agreeable. LEE updated MD and RN. LEE will continue to follow. Assessment:Pt who will return home on Hospice. Plan:Pt to likely discharge home today around 1300 for Hospice to open at 1400. DME to be delivered this morning. LEE will continue to follow. SAEED Hurtado
[2016-10-14] MEDS: HYDROmorphone 1 mg/mL Inj IVPUSH PRN (10:31)
[2016-10-14] MEDS ORDERED: HYDR2TAB27 PO (10:32)
[2016-10-14] MEDS ORDERED: FURO40TA4 PO (10:37)
--- NOTE | 2016-10-14 10:37 | PCM.DIMED ---
Discharge Instructions Date of Service Oct 14, 2016 Dates of Hospitalization Oct 10, 2016 at 14:37 Discharge Diagnosis Discharge Diagnosis # Generalized weakness likely secondary symptoms of progressing colon cancer, present on admission. Ongoing # Stage 2 peripheral ulcer at right buttock 1 cm x 1 cm 0.1 cm. present on admission. # Anasarca # Acute Hyperkalemia. present on admission. ongoing # Acute kidney injury. present on admission. ongoing and worsening # Atrial fibrillation. chronic. stable Diet No restrictions Activity Other (as tolerated) Patient Instructions Apply Calmoseptine and sacral foam dressing change q48 hrs, frequent repositioning. Leg wraps without breakthrough drainage can be changed as needed for soiling. Follow-up plan Followup with primary care provider as needed Follow-up Provider: Israel Braun DO Provider: Anderson Saul MD, Masoud Oct 14, 2016 10:37
--- NOTE | 2016-10-14 11:41 | NUR ---
Social Work-discharge: data:EMR Reviewed. Pt is on day 4 of hospitalization for pneumonia per H&P. Pt is medically stable to discharge today. SW confirmed with Hospice that DME is going to be delivered today at the home and they are opening between 2-3. SW confirmed plan with pt's and she is agreeable to plan. Pt's has arranged her own transport with friends at [facility]. SW updated RN at bedside. All updated and agreeable to plan. Assessment:Pt who would benefit from Hospice. Plan:Pt to discharge home today via POV. Hospice to deliver DME today and open with pt at home between 2-3. Pt and updated and agreeable to plan. All updated and agreeable to plan. SAEED Hurtado
--- NOTE | 2016-10-14 13:01 | NUR ---
Discharge Pt discharged at this time, VSS, no complains of increased pain. Port de-accessed by IV therapy. All belongings gathered and returned to pt and spouse. Discharge packet printed and reviewed with spouse. Pt transferred to [facility] by transportation staff. Pt to be driven home in ambulance to be care for by Hospice.
--- NOTE | 2016-10-14 17:44 | PCM.DC.MED ---
Discharge Summary Date of Service Oct 14, 2016 Dates of Hospitalization Date of Hospital Admission Oct 10, 2016 at 14:37 Date of Discharge: Oct 14, 2016 Providers: Admitting Physician: Melia Grewal DO Primary Care Physician: Israel Braun DO Attending Physician: Melia Grewal DO Diagnosis at Time of Discharge Diagnosis at Time of Discharge # Generalized weakness likely secondary symptoms of progressing colon cancer, present on admission. Ongoing # Stage 2 peripheral ulcer at right buttock 1 cm x 1 cm 0.1 cm. present on admission. # Anasarca # Acute Hyperkalemia. present on admission. ongoing # Acute kidney injury. present on admission. ongoing and worsening # Atrial fibrillation. chronic. stable Consultations 1. Palliative care 2. Oncology 3. Nephrology Brief History 66yo male patient presents with the c/o aching all over and leg cramps with colon carcinoma with metastasis to the liver and a history of Hodgkin's and non- Hodgkin's lymphoma. Hospital Course # Generalized weakness likely secondary symptoms of progressing colon cancer - Wound culture: Positive for gram-negative rods and gram-positive cocci Enterobacter Colacae sensitive to Cipro - treated with Ciprofloxacin during this hospital but stop upon discharge home with hospice per palliative care recs # Anasarca - Continue pain management # Acute Hyperkalemia. poa. ongoing - c/w supportive care # Acute kidney injury. poa. ongoing and worsening - appreciate nephrology consult. will f/u w/ recs - plan for hospice at this time # Atrial fibrillation. chronic. stable - Patient has a history of A. fib and the patient does go in and out of A. fib - Currently rate controlled # Goals of care: - Had long discussion with patient, his and daughter. They all confirm wishes to go home with hospice and to initiate comfort care upon discharge - appreciate palliative care consult. by day of d/c patient appears to be fairly comfortable. Exam Vital Signs (Last) Date Time Temp Pulse Resp B/P Pulse Ox O2 Delivery O2 Flow Rate FiO2 10/14/16 06:59 36.2 108 10 101/57 94 Room Air Test 10/10/16 11:40 10/10/16 13:18 10/11/16 05:20 10/13/16 06:00 Neutrophils (%) (Auto) 86.1% (40-74) Lymphocytes (%) (Auto) 2.6% (14-46) Monocytes (%) (Auto) 10.3% (4-12) Eosinophils (%) (Auto) 0.4% (0-5) Basophils (%) (Auto) 0.2% (0-3) Prothrombin Time 13.9sec (8.1-12.5) Prothromb Time International Ratio 1.29ratio Lactic Acid Level 1.9mmol/L (0.4-2.0) Magnesium Level 2.5mg/dL (1.6-2.6) Urine Color Yellow (YELLOW) Urine Appearance Clear (CLEAR,HAZY) Urine pH 5.0 (5.0-8.0) Urine Specific [place] 1.015 (1.003-1.035) Urine Protein Negativemg/dL (NEG,TRACE) Urine Glucose (UA) Negativemg/dL (NEGATIVE) Urine Ketones Negativemg/dL (NEGATIVE) Urine Occult Blood Negative (NEGATIVE) Urine Nitrite Negative (NEGATIVE) Urine Bilirubin Small (NEGATIVE) Urine Ictotest Positive (Negative) Urine Urobilinogen Normalmg/dL (NORMAL) Urine Leukocyte Esterase Negative (NEGATIVE) Urine RBC 0-2/hpf (0-2) Urine WBC 0-5/hpf (0-5) Urine Epithelial Cells Occasional/hpf (NONE-MOD) Urine Crystals None seen (NONE SEEN) Urine Bacteria Few/hpf (NONE-FEW) Urine Hyaline Casts None/lpf (NONE) Urine Granular Casts None seen (NONE SEEN) Urine Waxy Casts None seen (NONE SEEN) Urine Red Blood Cell Casts None seen (NONE SEEN) Urine White Blood Cell Casts None seen (NONE SEEN) Urine Mucus None seen (None Seen) Urine Trichomonas None seen (NONE SEEN) Urine Yeast None (NONE SEEN) Urinalysis Comment None Urine Culture Reflexed Not indicated Troponin T 0.041ug/L (0.0-0.011) White Blood Count 10.7th/mm3 (3.8-10.1) Red Blood Count 2.52mil/mm3 (4.40-5.80) Hemoglobin 8.3g/dL (13.8-17.2) Hematocrit 23.5% (41.0-50.0) Mean Corpuscular Volume 93.3fL (81-100) Mean Corpuscular Hemoglobin 32.9pg (27.0-35.0) Mean Corpuscular Hemoglobin Concent 35.3% (32.0-37.0) Red Cell Distribution Width 21.1% (12.3-15.4) Platelet Count 158bil/L (150-400) Sodium Level 141mEq/L (134-144) Potassium Level 6.0mEq/L (3.5-5.2) Chloride Level 108mEq/L (97-108) Carbon Dioxide Level 14mmol/L (18-29) Blood Urea Nitrogen 119mg/dL (8-27) Creatinine 3.61mg/dL (0.76-1.27) Estimat Glomerular Filtration Rate 18mL/min (>59) Glucose Level 102mg/dL (60-99) Calcium Level 8.2mg/dL (8.5-10.1) Total Bilirubin 7.3mg/dL (0.0-1.2) Aspartate Amino Transf (AST/SGOT) 59U/L (0-50) Alanine Aminotransferase (ALT/SGPT) 25U/L (0-44) Alkaline Phosphatase 239U/L (25-160) Total Protein 6.6g/dL (6.4-8.4) Albumin 2.5g/dL (3.4-5.0) Discharge Medications Discharge Medications Metoprolol Tartrate (Metoprolol Tartrate) 50 Mg Tablet 50 MG PO BID (Reported) Sennosides (Senna) 8.6 Mg Tablet 8.6 MG PO DAILY (Reported) Tamsulosin (Flomax) 0.4 Mg Capsule 0.4 MG PO Evening (Reported) As needed Docusate Sodium (Docusate Sodium) 250 Mg Capsule 250 MG PO DAILY PRN PRN For Constipation (Reported) Furosemide (Furosemide) 40 Mg Tablet 40 MG PO DAILY PRN PRN edema Prescribed by: REX PEREZ MD Hydromorphone (Dilaudid) 2 Mg Tablet 2 MG PO Q4H PRN PRN Pain Prescribed by: REX PEREZ MD oxyCODONE (oxyCODONE) 5 Mg Tablet 5-10 MG PO q6hrs PRN PRN For Pain (Reported) Followup Plan Disposition: Home with hospice Follow-up plan Followup with primary care provider as needed Discharge Diet: No restrictions Discharge Activity: Other (as tolerated) Patient Instructions Apply Calmoseptine and sacral foam dressing change q48 hrs, frequent repositioning. Leg wraps without breakthrough drainage can be changed as needed for soiling. Follow-up Provider: Israel Braun DO Provider: Anderson Saul MD Time spent 30 min copies to: Israel Braun DO; Anderson Saul MD, Masoud Oct 14, 2016 17:44
== END 2016-10-14 13:12 | disposition hospice, home (50) | DRG 375 ==
LOC: SED 11:12 → MPC 14:37
PROVIDERS: ADMIT Neuromusculoskeletal Medicine & OMM; ATTEND Neuromusculoskeletal Medicine & OMM
DX: C18.9 Malignant neoplasm of colon, unspecified (principal); C78.5 Secondary malignant neoplasm of large intestine and rectum; I42.0 Dilated cardiomyopathy; C78.7 Secondary malignant neoplasm of liver and intrahepatic bile duct; N17.9 Acute kidney failure, unspecified; L97.819 Non-pressure chronic ulcer of other part of right lower leg with unspecified severity; L97.829 Non-pressure chronic ulcer of other part of left lower leg with unspecified severity; R64 Cachexia; G89.3 Neoplasm related pain (acute) (chronic); L89.312 Pressure ulcer of right buttock, stage 2; I10 Essential (primary) hypertension; I48.2 Chronic atrial fibrillation; E87.5 Hyperkalemia; B96.6 Bacteroides fragilis [B. fragilis] as the cause of diseases classified elsewhere; Z16.23 Resistance to quinolones and fluoroquinolones; Z66 Do not resuscitate; Z87.891 Personal history of nicotine dependence; Z86.73 Personal history of transient ischemic attack (TIA), and cerebral infarction without residual deficits; Z85.71 Personal history of Hodgkin lymphoma; Z85.72 Personal history of non-Hodgkin lymphomas; Z93.1 Gastrostomy status; Z93.3 Colostomy status; Z68.31 Body mass index [BMI] 31.0-31.9, adult; Z51.5 Encounter for palliative care